=== PATIENT | female | born 1985 ===

== ENCOUNTER 2022-03-04 13:32 | Outpatient (CLI) | payer OTHER, SELFPAY | END 2022-03-04 13:33 | disposition home or self-care (01) | PROVIDERS: Visit Provider Physician Assistant | DX: Z01.419 Encounter for gynecological examination (general) (routine) without abnormal findings (principal); Z13.6 Encounter for screening for cardiovascular disorders; Z13.1 Encounter for screening for diabetes mellitus | CPT/HCPCS: 87624; 88175 ==

== ENCOUNTER 2024-03-15 09:18 | Outpatient (CLI) | payer OTHER, SELFPAY | END 2024-03-15 09:19 | disposition home or self-care (01) | PROVIDERS: PCP Nurse Practitioner Family; Visit Provider Nurse Practitioner Family | DX: Z00.00 Encounter for general adult medical examination without abnormal findings (principal); Z13.6 Encounter for screening for cardiovascular disorders; Z13.1 Encounter for screening for diabetes mellitus | CPT/HCPCS: 80061; 82947 ==

== ENCOUNTER 2024-07-19 07:59 | Day surgery (SDC) | payer OTHER, SELFPAY ==
[2024-07-19] VITALS (12 sets, daily range): BP systolic 110–120; BP diastolic 48–81; PULSE 59–88; RESP 14–16; TEMP 36.6–37.1; O2SAT 95–100; BMI 33.0
[2024-07-19] MEDS: 0.9 % SODIUM CHLORIDE 500 ML 500 ML 100 ML IV (08:20)
[2024-07-19] MEDS: SODIUM CHLORIDE 0.9 % (FLUSH) 10 ML SYRINGE IVF (08:20)
[2024-07-19 08:38] LABS: Hemoglobin* 13.4 gm/dL (12.0-16.0)
[2024-07-19 08:42] LABS: Ur HCG Qualitative* Negative (Negative)
--- NOTE | 2024-07-19 08:42 | W.ANESCHARGE ---
Anesthesia Charges Start Date/Time Anesthesia Start Date: 07/19/24 Anesthesia Start Time: 09:39 Stop Date/Time Anesthesia Stop Date: 07/19/24 Anesthesia Stop Time: 10:53
--- NOTE | 2024-07-19 08:45 | W.PM.H&PU ---
History & Physical Update History & Physical Update H&P Reviewed and patient assessed: No changes noted H&P Updates: Continues to desire permanent sterilization.
[2024-07-19] MEDS: BUPIVACAINE 0.5 %/EPI 1:200K 30 ML INJECTION (10:36)
--- NOTE | 2024-07-19 10:54 | W.ANESCHARGE ---
Anesthesia Charges Start Date/Time Anesthesia Start Date: 07/19/24 Anesthesia Start Time: 09:39 Stop Date/Time Anesthesia Stop Date: 07/19/24 Anesthesia Stop Time: 10:53
--- NOTE | 2024-07-19 10:58 | SUR.PHASEI ---
Patient came to PACU, awake, no complaints of pain or nause, declining ice chips at this time, incisions dry and intact.
--- NOTE | 2024-07-19 11:16 | SUR.PHASEI ---
Patient resting without complaints. Patient meets anesthesia discharge criteria from PACU
--- NOTE | 2024-07-19 15:52 | P.PCNOB_ITS ---
Procedure Pre-op/Post-op diagnoses: Pre-Op/Post-Op Diagnoses Operation Date: 07/19/24 09:25 <No data on this case meets the specified criteria> Procedure: Procedures Operation Date: 07/19/24 09:25 Actual Procedure Side Surgeon p Laparoscopic Bilateral Salpingectomy, Mirena Intrauterine Device Removal Bilateral Dorys Montaño MD Estimated blood loss (mL): 5 Anesthesia Type: General Complications: none Specimen: other (Bilateral fallopian tubes ) Narrative: Preoperative diagnosis: Jessy Bettencourt is a 39-year-old who desires permanent sterilization. Postoperative diagnosis: Same. Anesthesia: General endotracheal, Local Surgeon: Dorys Montaño MD Urine output: 400 mL clear urine IVF: 500 ml Exam under anesthesia: Mons normal, clitoris normal, urethral meatus normal. Labia minora and majora normal in appearance bilaterally. Perineum and anus nor mal appearance. Vaginal introitus normal appearance. Cervix normal with IUD strings appropriately protruding from cervical os. Bimanual exam reveals uterus to be soft, nontender, mobile, anteverted, of mildly enlarged size and texture. No palpable adnexal masses or tenderness. On laparoscopy: Normal anteverted enlarged uterus, bilateral fallopian tubes with nodularity along the length. Normal ovaries bilaterally. Normal liver and abdominal survey. Procedure: Patient was taken to the operating room where general anesthetic was found to be adequate. She was placed in the dorsal lithotomy position and an exam under anesthesia was performed with findings stated above. She was then prepped and draped in a normal sterile manner. A Meek catheter was then placed. A large sponge stick was placed into the vagina to be used as a manipulator was then placed. Attention was then turned to performing the laparoscopic portion of the procedure. All incisions were injected with 1% lidocaine prior to incision. A vertical 5 mm infraumbilical, incision, was made and a 5 mm trocar placed under direct visualization with the laparoscope. 5 mm camera was placed within the 5 mm Fios Kii trocar, and advanced under direct visualization through the anterior abdominal wall into the peritoneal cavity, while tenting up the anterior abdominal wall. The trocar was removed. The balloon was inflated, holding the port in place. Pneumoperitoneum was achieved. Survey of the abdomen and pelvis revealed the above-noted findings. Two additional port sites were created. The first was in the patient's left lower quadrant, just superomedial to the left ASIS. The second was a hand's breath superior to and slightly medial to the first. Each was infiltrated with small amount of Marcaine prior to incision. A 5 mm incision was made at each site, after assuring that large vessels were out of harm's way. A 5 mm Fios Kii port was inserted at each site, under direct visualization and without compli cation. The balloon on each of the 3 ports was inflated, holding each in place. The left fallopian tube was grasped with a sliding grasper. The left fallopian tube was removed from the broad ligament using the LigaSure dissecting forceps starting at the fimbriated end of the tube. Sequential pedicles were then formed to the level of the cornua. The tube was then removed at the cornua and removed from the abdomen through the left lower quadrant port. The right fallopian tube was removed in a similar manner. Excellent hemostasis was noted of all pedicles. The trocars were then removed under direct visualization. The CO2 gas was allowed to escape the infraumbilical port prior to its removal. All incisions were reapproximated using 4-0 Monocryl in a running subcuticular manner. Exofin was applied over each incision. The vaginal manipulator and Meek catheter were removed. Sterile speculum was inserted PV. It IUD strings visualized protruding appropriately from cervical os. The ring forceps was used to grasp the IUD strings and gentle traction was applied to remove the Mirena IUD without complications. The patient tolerated this procedure well. Sponge, lap and instrument counts were correct x2 at the end of the procedure and the patient was taken to the recovery area in stable condition. Debrief performed and specimen reviewed.
== END 2024-07-19 12:20 | disposition home or self-care (01) ==
LOC: OR 08:00
PROVIDERS: PCP Nurse Practitioner Family; Visit Provider Obstetrics & Gynecology
PROC: (CPT 58661; principal; 2024-07-19 09:15)
DX: Z30.2 Encounter for sterilization (principal)
CPT/HCPCS: 58661; 00840; 36415; 81025; 85018; 86850; 86900; 86901; 88307; A4314; J0330; J1885; J2250; J2405; J2704; J2710; J3010; J3490; J7030

== ENCOUNTER 2024-12-18 18:36 | Outpatient (CLI) | payer OTHER, SELFPAY ==
--- NOTE | 2024-12-18 18:40 | CRLHL7_ITS ---
For Patients: As a result of the Century Cures Act, medical imaging exams and procedure reports are released immediately into your electronic medical record. You may view this report before your referring provider. If you have questions, please contact your health care provider. INDICATION: BILATERAL SCREENING MAMMOGRAM, ASYMPTOMATIC 39 Y/O FEMALE COMPARISON: NONE TECHNIQUE: Digital mammogram in CC and MLO projections including computer-aided detection (CAD) and tomosynthesis. BREAST COMPOSITION: There are scattered areas of fibroglandular density. FINDINGS: No suspicious findings. ASSESSMENT: BI-RADS 1 Negative RECOMMENDATION: Annual screening mammogram. A lay language report of this examination will be provided to the patient. Dictated by: Lamberto Christine MD @ 12/19/2024 12:52:50 (Electronically Signed)
== END 2024-12-18 18:37 | disposition home or self-care (01) ==
LOC: MAMMO 18:36
PROVIDERS: PCP Nurse Practitioner Family; Visit Provider Nurse Practitioner Family
DX: Z12.31 Encounter for screening mammogram for malignant neoplasm of breast (principal)
CPT/HCPCS: 77063; 77067